=== PATIENT | male | born 1990 | race Caucasian/White ===

== ENCOUNTER 2018-02-16 09:48 | Emergency (ER) | payer BC, SELFPAY ==
[2018-02-16 10:06] VITALS: BP 105/71; PULSE 77; RESP 16; TEMP 36.6; O2SAT 100
--- NOTE | 2018-02-16 10:13 | DI.CT_ITS ---
SYMPTOM/DIAGNOSIS: RLQ PAIN CT ABDOMEN AND PELVIS: The study was carried out with oral ingestion of 50 cc Omnipaque 350. The lung bases are unremarkable. The liver and spleen are enlarged. No focal hepatic or splenic abnormality is seen. The gallbladder and pancreas are unremarkable. Multiple small right renal calculi are demonstrated. There is mild right hydronephrosis and hydroureter. A tiny calcification is noted on the right posterior bladder floor likely representing a past calculus. The bladder is otherwise unremarkable. The left kidney is normal. No adrenal abnormality is seen. There is no evidence of bowel obstruction. The appendix is normal. There is no evidence of free air or free fluid in the intraperitoneal space. No hernia is identified. Allowing for the absence of contrast material, there is nothing to suggest an aortic aneurysm No acute bony abnormality is identified. SUMMARY: Left nephrolithiasis is demonstrated. There is apparent mild and a very small calcification overlying the posterior right bladder wall likely represents a very small calculus. As noted above, there is mild right hydronephrosis and small right renal calculi are demonstrated.
--- NOTE | 2018-02-16 10:22 | W.ED.GENAD ---
Discharge Plan Disposition Patient Disposition: HOME Condition: Fair Discharge Details Chief Complaint: Abd Prob Clinical Impression: Right nephrolithiasis Primary Care Provider: Sam Walker ED Provider: Nancie Sotomayor Discharge Instructions Instructions: Kidney Stones (ED) Additional Instructions: Encourage hydration. Anti-inflammatories will work best for your pain, you may use 600 mg of ibuprofen every 6 hours. Your next ibuprofen dosing at 6 PM. He may augment this with Tylenol, use 1000 mg of Tylenol every 6 hours. Please strain your urine to that may collect stone and bring this with you to your upcoming urology appointment. Our summer child caregiver will help facilitate follow-up with urology. If you develop fever/chills, increased pain or other new/worsening symptoms please seek care urgently once again Referrals: Tung Rondon MD [ [facility] STAFF PHYSICIAN] - ([phone]) Sam Walker [Primary Care Provider] - Discharge Data Discharge Date/Time-TO BE ENTERED AT DEPARTURE: 02/16/18 12:59 Medical Decision Making Patient presents today with chief complaint of right lower quadrant pain. On exam, patient is unable to hold still. Was initially found on the ground in the waiting room curled up clutching his abdomen. Patient is endorsing nausea. States the pain is 10 out of 10 at this time in the right lower quadrant. Pain is primarily over McBurney's point. However, his appearance is also concerning for possible kidney stone. No CVA tenderness. Will obtain laboratory evaluation, treatment since discomfort, nausea and obtain imaging. I did discuss the case with Dr. Aquino who happened to be in the department. I did question if the patient may receive Toradol as he may be an acute appendicitis and he thought that this was appropriate given the patient's history. Patient will be given IV Tylenol, Toradol, Compazine and Benadryl. Laboratory evaluation significant for blood in the urine, no signs of infection the urinalysis. No leukocytosis. Laboratory evaluation of the right without significant of normality After the patient received IV Toradol, Tylenol and antiemetics he appears much improved. He is sleeping, resting comfortably. He reports that while he still has discomfort it is improved CT obtained showing right hydronephrosis and calcification that appears to be a passed stone in the bladder. Discussed findings with the radiologist. No other acute abnoramlities noted. Discussed findings with the patient. Advised taht it appears he has passed a kidney stone. Patient was asked to strain urine, will be given collection kit by nursing staff. Encuraged hydration. Advised that the bulk of his discomfort should have subsided given the location of the stone on CT. Advised that NSAIDS would be mot appriopriate for his pain. Advised he may augment this with Tylenol. Discussed new/worsening symptoms and when to seek care urgently once again. Advised f/u with urologist and have asked our summer child caregiver to help set up appointment. All of his qeustions adn onerns were addressed, he is in agreement with maryam lawrence. HPI General Mode of arrival: ambulatory. Date/Time Provider Initiated Documentation: 02/16/18 10:13. Limitations to Documentation: no limitations. Information obtained by: patient. HPI Narrative: Patient is a 27-year-old male presenting today with chief complaint of severe right lower quadrant pain. Reports that he awoke with the pain approximately 2 and half hours prior to arrival. Since the pain is waxed and waned. Has found more comfortable to be in flexed position. Denies any fevers. Endorses nausea and vomiting. Is not had any food this Wednesday. States that yesterday he was not having an abdominal pain, was endorsing gas yesterday. Denies any change in bowel habits. States he has not had a bowel movement thus far today. Has not had any surgical intervention on his abdomen historically. Denies any pain in his testicles. No change in urinary habits. Denies any blood in his urine. Denies history of kidney stones or renal issues. Reports that aside from opiate abuse historically, no other medical history. No known drug allergies Related Data Allergies Allergy/AdvReac Type Severity Reaction Status Date / Time iodine Allergy Mild Hives Unverified 02/16/18 12:06 General Stated Complaint: Abd Prob CHETAN: 3 Review of Systems Constitutional Reports as per HPI, Denies chills, Denies fatigue, Denies fever(s) and Denies headache(s) ENT Denies headache(s) Cardiovascular Denies chest pain and Denies dyspnea Respiratory Denies cough and Denies dyspnea Gastrointestinal Reports as per HPI, Reports abdominal pain, Denies melena, Denies change in stool character, Denies cramping, Denies diarrhea, Reports nausea and Reports vomiting (x1 this morning) Genitourinary Reports as per HPI, Denies hematuria, Denies genital lesions, Denies genital pain, Denies dysuria, Denies flank pain, Denies testicular pain and Reports urinary urgency Musculoskeletal Denies back pain Integumentary/Breasts Denies rash and Denies wounds Neurologic Denies headache(s) Endocrine Denies fatigue [facility] Social History Smoking/Tobacco Use Status: Current every day Exam Const General: cooperative, healthy appearing, uncomfortable (patient is moving frequently, appears very uncomfortable), well developed, well groomed and acute distress moderate (patient appears uncomfortable, is moving frequently) Nutritional Appearance: average body habitus and well nourished Orientation: alert and awake HENMT Head: normal to inspection Ears: hearing grossly normal bilaterally Mouth: moist mucous membranes Eyes General: appearance normal, both eyes and all related structures Resp Effort & Inspection: normal respiratory effort, able to speak in complete sentences and no respiratory distress Auscultation: clear to auscultation bilaterally Cardio Rate: regular rate Rhythm: regular rhythm Heart Sounds: S1 normal and S2 normal GI Inspection: no abdominal wall ecchymosis, no edema, non-distended, no incisions and no visible herniation Palpation: soft, no hepatosplenomegaly, no aortic enlargement, not firm, no guarding, no masses, not rigid and tender in the RLQ, at McBurney's point and suprapubicly; obturator sign negative, psoas sign negative and with no rebound tenderness Percussion: normal to percussion Auscultation: normal bowel sounds Back/Spine/Pelvis Back: no CVA tenderness Skin General skin exam: no rashes or lesions noted Neuro General: alert and awake Cognition: normal cognition Speech: speech normal Gait: normal gait Course Vital Signs Temperature 36.6 C 02/16/18 10:06 Pulse 77 02/16/18 10:06 Respiratory Rate 16 02/16/18 10:06 Blood Pressure 105/71 02/16/18 10:06 Pulse Oximetry 100 02/16/18 10:06 Temperature 36.6 C 02/16/18 10:06 Temperature Source Skin 02/16/18 10:06 Pulse 77 02/16/18 10:06 Respiratory Rate 16 02/16/18 10:06 Respiratory Effort Non-Labored 09/26/18 10:06 Blood Pressure 105/71 02/16/18 10:06 Pulse Oximetry 100 02/16/18 10:06 Oxygen Delivery Method Room Air 02/16/18 10:06 Oxygen Flow Rate 0 02/16/18 10:06 Pain Level 10 02/16/18 10:06
[2018-02-16 10:23] LABS: Bilirubin Negative (Negative); Blood Moderate (Negative); Clarity Clear; Glucose Negative (Negative); Ketones Negative (Negative); Leukocyte Esterase Negative (Negative); Nitrite Negative (Negative); pH 8.5 (5-8)
--- NOTE | 2018-02-16 10:29 | ED.GENADUL_ITS ---
Discharge Plan Disposition Patient Disposition: HOME Condition: Fair Discharge Details Chief Complaint: Abd Prob Clinical Impression: Right nephrolithiasis Primary Care Provider: Sam Walker ED Provider: Nancie Sotomayor Discharge Instructions Instructions: Kidney Stones (ED) Additional Instructions: Encourage hydration. Anti-inflammatories will work best for your pain, you may use 600 mg of ibuprofen every 6 hours. Your next ibuprofen dosing at 6 PM. He may augment this with Tylenol, use 1000 mg of Tylenol every 6 hours. Please strain your urine to that may collect stone and bring this with you to your upcoming urology appointment. Our patient care assistant will help facilitate follow- up with urology. If you develop fever/chills, increased pain or other new/ worsening symptoms please seek care urgently once again Referrals: Tung Rondon MD [ [facility] STAFF PHYSICIAN] - ([phone]) Sam Walker [Primary Care Provider] - Discharge Data Discharge Date/Time-TO BE ENTERED AT DEPARTURE: 02/16/18 12:59 Medical Decision Making Patient presents today with chief complaint of right lower quadrant pain. On exam, patient is unable to hold still. Was initially found on the ground in the waiting room curled up clutching his abdomen. Patient is endorsing nausea. States the pain is 10 out of 10 at this time in the right lower quadrant. Pain is primarily over McBurney's point. However, his appearance is also concerning for possible kidney stone. No CVA tenderness. Will obtain laboratory evaluation, treatment since discomfort, nausea and obtain imaging. I did discuss the case with Dr. Aquino who happened to be in the department. I did question if the patient may receive Toradol as he may be an acute appendicitis and he thought that this was appropriate given the patient's history. Patient will be given IV Tylenol, Toradol, Compazine and Benadryl. Laboratory evaluation significant for blood in the urine, no signs of infection the urinalysis. No leukocytosis. Laboratory evaluation of the right without significant of normality After the patient received IV Toradol, Tylenol and antiemetics he appears much improved. He is sleeping, resting comfortably. He reports that while he still has discomfort it is improved CT obtained showing right hydronephrosis and calcification that appears to be a passed stone in the bladder. Discussed findings with the radiologist. No other acute abnoramlities noted. Discussed findings with the patient. Advised taht it appears he has passed a kidney stone. Patient was asked to strain urine, will be given collection kit by nursing staff. Encuraged hydration. Advised that the bulk of his discomfort should have subsided given the location of the stone on CT. Advised that NSAIDS would be mot appriopriate for his pain. Advised he may augment this with Tylenol. Discussed new/worsening symptoms and when to seek care urgently once again. Advised f/u with urologist and have asked our patient care assistant to help set up appointment. All of his qeustions adn onerns were addressed, he is in agreement with maryam lawrence. HPI General Mode of arrival: ambulatory . Date/Time Provider Initiated Documentation: 02/16/18 10:13 . Limitations to Documentation: no limitations . Information obtained by: patient . HPI Narrative: Patient is a 27-year-old male presenting today with chief complaint of severe right lower quadrant pain. Reports that he awoke with the pain approximately 2 and half hours prior to arrival. Since the pain is waxed and waned. Has found more comfortable to be in flexed position. Denies any fevers. Endorses nausea and vomiting. Is not had any food this Wednesday. States that yesterday he was not having an abdominal pain, was endorsing gas yesterday. Denies any change in bowel habits. States he has not had a bowel movement thus far today. Has not had any surgical intervention on his abdomen historically. Denies any pain in his testicles. No change in urinary habits. Denies any blood in his urine. Denies history of kidney stones or renal issues. Reports that aside from opiate abuse historically, no other medical history. No known drug allergies Related Data Allergies Allergy/AdvReac Type Severity Reaction Status Date / Time iodine Allergy Mild Hives Unverified 02/16/18 12:06 General Stated Complaint: Abd Prob CHETAN: 3 Review of Systems Constitutional Reports as per HPI, Denies chills, Denies fatigue, Denies fever(s) and Denies headache(s) ENT Denies headache(s) Cardiovascular Denies chest pain and Denies dyspnea Respiratory Denies cough and Denies dyspnea Gastrointestinal Reports as per HPI, Reports abdominal pain, Denies melena, Denies change in stool character, Denies cramping, Denies diarrhea, Reports nausea and Reports vomiting (x1 this morning) Genitourinary Reports as per HPI, Denies hematuria, Denies genital lesions, Denies genital pain, Denies dysuria, Denies flank pain, Denies testicular pain and Reports urinary urgency Musculoskeletal Denies back pain Integumentary/Breasts Denies rash and Denies wounds Neurologic Denies headache(s) Endocrine Denies fatigue [facility] Social History Smoking/Tobacco Use Status: Current every day Exam Const General: cooperative, healthy appearing, uncomfortable (patient is moving frequently, appears very uncomfortable), well developed, well groomed and acute distress moderate (patient appears uncomfortable, is moving frequently) Nutritional Appearance: average body habitus and well nourished Orientation: alert and awake HENMT Head: normal to inspection Ears: hearing grossly normal bilaterally Mouth: moist mucous membranes Eyes General: appearance normal, both eyes and all related structures Resp Effort & Inspection: normal respiratory effort, able to speak in complete sentences and no respiratory distress Auscultation: clear to auscultation bilaterally Cardio Rate: regular rate Rhythm: regular rhythm Heart Sounds: S1 normal and S2 normal GI Inspection: no abdominal wall ecchymosis, no edema, non-distended, no incisions and no visible herniation Palpation: soft, no hepatosplenomegaly, no aortic enlargement, not firm, no guarding, no masses, not rigid and tender in the RLQ, at McBurney's point and suprapubicly; obturator sign negative, psoas sign negative and with no rebound tenderness Percussion: normal to percussion Auscultation: normal bowel sounds Back/Spine/Pelvis Back: no CVA tenderness Skin General skin exam: no rashes or lesions noted Neuro General: alert and awake Cognition: normal cognition Speech: speech normal Gait: normal gait Course Vital Signs Temperature 36.6 C 02/16/18 10:06 Pulse 77 02/16/18 10:06 Respiratory Rate 16 02/16/18 10:06 Blood Pressure 105/71 02/16/18 10:06 Pulse Oximetry 100 02/16/18 10:06 Temperature 36.6 C 02/16/18 10:06 Temperature Source Skin 02/16/18 10:06 Pulse 77 02/16/18 10:06 Respiratory Rate 16 02/16/18 10:06 Respiratory Effort Non-Labored 09/26/18 10:06 Blood Pressure 105/71 02/16/18 10:06 Pulse Oximetry 100 02/16/18 10:06 Oxygen Delivery Method Room Air 02/16/18 10:06 Oxygen Flow Rate 0 02/16/18 10:06 Pain Level 10 02/16/18 10:06
[2018-02-16] MEDS: Ketorolac 30 MG/ML VIAL IVP (10:45)
[2018-02-16] MEDS: Normal Saline 1,000 ML 1000 ML IV (10:45)
[2018-02-16 10:50] LABS: Bacteria Moderate HPF (Negative); C & S Indicated? Yes; Casts Negative LPF (Negative); Crystals Negative HPF (Negative); Epithelial Cells Negative HPF (Negative); Mucus Moderate (Negative); RBC >50 (0-2); WBC 0-2 HPF (0-5)
[2018-02-16 10:50] LABS: *AMPHETAMINES SCREEN URINE Negative (Negative); *BARBITURATES SCREEN URINE Negative (Negative); *BENZODIAZEPINES SCREEN URINE Negative (Negative); Cannabinoids THC POSITIVE (Negative); Cocaine Screen,Urine Negative (Negative); METHADONE URINE SCREEN Negative (Negative); OPIATES URINE SCREEN Negative (Negative)
[2018-02-16] MEDS: Prochlorperazine 10 MG/2 ML VIAL IVP (10:50)
[2018-02-16 10:54] LABS: Tricyclic Antidepressants Negative (Negative)
[2018-02-16] MEDS: ACETAMINOPHEN 1,000 MG/100 ML BTL 400 MG IVPB (11:00)
[2018-02-16 11:10] LABS: Abs Immature Grans 0.02 k/cumm (0.0-0.09); Absolute Basophil Count 0.03 k/cumm (0.0-0.2); Absolute Lymphocyte Count 1.07 k/cumm (1.2-3.4); Absolute Monocyte Count 0.41 k/cumm (0.11-0.7); Absolute Neutrophil Count 4.33 k/cumm (1.2-6.7); Basophils % 0.5; Eosinophils % 3.3; HCT 42.8 % (40.0-50.0); HGB 14.2 g/dL (13.5-17.5); Immature Grans % 0.3; Lymphocytes % 17.7; Mean Corp. HGB Concentration 33.2 g/dL (32.0-36.0); Mean Corpuscular Hemoglobin 29.5 pg (27.0-33.0); Mean Corpuscular Volume 88.8 fL (80-95); Mean Platelet Volume 8.6 fL (8.0-11.0); Monocytes % 6.8; Neutrophils % 71.4; Platelet Count 312 x1000/uL (130-400); RBC 4.82 m/cumm (4.50-6.00); RBC Distribution Width 14.2 % (11.8-14.1); White Blood Cell Count 6.06 k/cumm (4.4-10.8)
[2018-02-16] MEDS: diphenhydrAMINE 50 MG/ML VIAL 25 MG IVP (11:20)
[2018-02-16 11:31] LABS: ALT 16 U/L (12-78); AST 8 U/L (15-37); Albumin 3.4 g/dL (3.4-5.0); Alkaline Phosphatase 94 U/L (46-116); Anion Gap 11.2 mmol/L (3-11); BUN 10 mg/dL (7-18); Bilirubin, Total 0.2 mg/dL (0.2-1.0); CO2 23.8 mmol/L (21.0-32.0); CREATININE 0.92 mg/dL (0.70-1.30); Calcium 9.5 mg/dL (8.5-10.1); Chloride 106 mmol/L (98-107); Glucose 129 mg/dL (70-100); Lipase 70 U/L (73-393); Potassium 4.1 mmol/L (3.5-5.1); Sodium 141 mmol/L (136-145)
[2018-02-16 11:32] LABS: Troponin I < 0.02 ng/mL (0.00-0.06)
--- NOTE | 2018-02-16 11:38 | W.ED.GENAD ---
Discharge Plan Discharge Details Chief Complaint: Abd Prob Primary Care Provider: Sam Walker ED Provider: Nancie Sotomayor Medical Decision Making ECG Data Attestation: I personally reviewed and interpreted this ECG (s) as follows: Interpretation: Normal sinus rhythm, rate 77, QRS is narrow, there is no ST segment elevation present HPI General Mode of arrival: ambulatory. Date/Time Provider Initiated Documentation: 02/16/18 10:13. Limitations to Documentation: no limitations. Information obtained by: patient. Stated Complaint: Abd Prob CHETAN: 3 PFSH Social History Smoking/Tobacco Use Status: Current every day Course Vital Signs Temperature 36.6 C 02/16/18 10:06 Pulse 77 02/16/18 10:06 Respiratory Rate 16 02/16/18 10:06 Blood Pressure 105/71 02/16/18 10:06 Pulse Oximetry 100 02/16/18 10:06 Temperature 36.6 C 02/16/18 10:06 Temperature Source Skin 02/16/18 10:06 Pulse 77 02/16/18 10:06 Respiratory Rate 16 02/16/18 10:06 Respiratory Effort Non-Labored 02/16/18 10:06 Blood Pressure 105/71 02/16/18 10:06 Pulse Oximetry 100 02/16/18 10:06 Oxygen Delivery Method Room Air 02/16/18 10:06 Oxygen Flow Rate 0 02/16/18 10:06 Pain Level 10 02/16/18 10:45 Lab/Test Results Lab/Test Results: 02/16/18 10:14 Urine - Reflex from Ua Urine Culture - Pending Laboratory Tests Range/Units 02/16/18 02/16/18 02/16/18 10:14 10:15 10:56 WBC (4.4-10.8) k/cumm RBC (4.50-6.00) m/cumm Hgb (13.5-17.5) g/dL Hct (40.0-50.0) % MCV (80-95) fL MCH (27.0-33.0) pg MCHC (32.0-36.0) g/dL RDW (11.8-14.1) % Plt Count (130-400) x1000/uL MPV (8.0-11.0) fL Immature Gran % Neutrophils % Lymphocytes % Monocytes % Eosinophils % Basophils % Absolute Neutrophils (1.2-6.7) k/cumm Absolute Lymphocytes (1.2-3.4) k/cumm Absolute Monocytes (0.11-0.7) k/cumm Absolute Eosinophils (0.0-0.7) k/cumm Absolute Basophils (0.0-0.2) k/cumm Sodium (136-145) mmol/L 141 Potassium (3.5-5.1) mmol/L 4.1 Chloride (98-107) mmol/L 106 Carbon Dioxide (21.0-32.0) mmol/L 23.8 Anion Gap (3-11) mmol/L 11.2 H BUN (7-18) mg/dL 10 Creatinine (0.70-1.30) mg/dL 0.92 Estimated GFR/1.73 m2 (mL/min/1.73m2) >= 60.00 Glucose (70-100) mg/dL 129 H Calcium (8.5-10.1) mg/dL 9.5 Magnesium (1.8-2.4) mg/dL 2.0 Total Bilirubin (0.2-1.0) mg/dL 0.2 AST (15-37) U/L 8 L ALT (12-78) U/L 16 Alkaline Phosphatase (46-116) U/L 94 Troponin I (0.00-0.06) ng/mL < 0.02 Total Protein (6.4-8.2) g/dL 8.0 Albumin (3.4-5.0) g/dL 3.4 Lipase (73-393) U/L 70 L Urine Color (Yellow) Yellow Urine Clarity Clear Urine pH (5-8) 8.5 H Ur Specific [place] (1.005-1.025) 1.020 Urine Protein (Negative) mg/dL Negative Urine Ketones (Negative) mg/dL Negative Urine Blood (Negative) Moderate H Urine Nitrite (Negative) Negative Urine Bilirubin (Negative) Negative Urine Urobilinogen (Up TO 0.2) EU/dL 1.0 H Ur Leukocyte Esterase (Negative) Negative Urine RBC (0-2) >50 H Urine WBC (0-5) HPF 0-2 Ur Epithelial Cells (Negative) HPF Negative Urine Crystals (Negative) HPF Negative Urine Bacteria (Negative) HPF Moderate Urine Casts (Negative) LPF Negative Urine Mucus (Negative) Moderate Ur Culture Indicated? Yes Urine Glucose (Negative) mg/dL Negative Urine Opiates Screen (Negative) Negative Urine Methadone Screen (Negative) Negative Ur Barbiturates Screen (Negative) Negative Ur Tricyclics Screen (Negative) Negative Ur Amphetamines Screen (Negative) Negative U Benzodiazepines Scrn (Negative) Negative Urine Cocaine Screen (Negative) Negative Ur THC Screen (Negative) Positive Range/Units 02/16/18 10:56 WBC (4.4-10.8) k/cumm 6.06 RBC (4.50-6.00) m/cumm 4.82 Hgb (13.5-17.5) g/dL 14.2 Hct (40.0-50.0) % 42.8 MCV (80-95) fL 88.8 MCH (27.0-33.0) pg 29.5 MCHC (32.0-36.0) g/dL 33.2 RDW (11.8-14.1) % 14.2 H Plt Count (130-400) x1000/uL 312 MPV (8.0-11.0) fL 8.6 Immature Gran % 0.3 Neutrophils % 71.4 Lymphocytes % 17.7 Monocytes % 6.8 Eosinophils % 3.3 Basophils % 0.5 Absolute Neutrophils (1.2-6.7) k/cumm 4.33 Absolute Lymphocytes (1.2-3.4) k/cumm 1.07 L Absolute Monocytes (0.11-0.7) k/cumm 0.41 Absolute Eosinophils (0.0-0.7) k/cumm 0.20 Absolute Basophils (0.0-0.2) k/cumm 0.03 Sodium (136-145) mmol/L Potassium (3.5-5.1) mmol/L Chloride (98-107) mmol/L Carbon Dioxide (21.0-32.0) mmol/L Anion Gap (3-11) mmol/L BUN (7-18) mg/dL Creatinine (0.70-1.30) mg/dL Estimated GFR/1.73 m2 (mL/min/1.73m2) Glucose (70-100) mg/dL Calcium (8.5-10.1) mg/dL Magnesium (1.8-2.4) mg/dL Total Bilirubin (0.2-1.0) mg/dL AST (15-37) U/L ALT (12-78) U/L Alkaline Phosphatase (46-116) U/L Troponin I (0.00-0.06) ng/mL Total Protein (6.4-8.2) g/dL Albumin (3.4-5.0) g/dL Lipase (73-393) U/L Urine Color (Yellow) Urine Clarity Urine pH (5-8) Ur Specific [place] (1.005-1.025) Urine Protein (Negative) mg/dL Urine Ketones (Negative) mg/dL Urine Blood (Negative) Urine Nitrite (Negative) Urine Bilirubin (Negative) Urine Urobilinogen (Up TO 0.2) EU/dL Ur Leukocyte Esterase (Negative) Urine RBC (0-2) Urine WBC (0-5) HPF Ur Epithelial Cells (Negative) HPF Urine Crystals (Negative) HPF Urine Bacteria (Negative) HPF Urine Casts (Negative) LPF Urine Mucus (Negative) Ur Culture Indicated? Urine Glucose (Negative) mg/dL Urine Opiates Screen (Negative) Urine Methadone Screen (Negative) Ur Barbiturates Screen (Negative) Ur Tricyclics Screen (Negative) Ur Amphetamines Screen (Negative) U Benzodiazepines Scrn (Negative) Urine Cocaine Screen (Negative) Ur THC Screen (Negative)
[2018-02-16] MEDS: Normal Saline 1,000 ML 150 ML IV (12:00)
[2018-02-16] MEDS: Omnipaque 350 MG/ML 50 ML BTL PO (12:19)
[2018-02-16 13:09] VITALS: BP 110/62; PULSE 70; RESP 16; TEMP 36.6; O2SAT 100
--- NOTE | 2018-02-17 14:06 | PDOC.ERCMPRO ---
Care Management Progress Note 02/17/18-Pt seen for Kidney Stone on 02/16/18 by BEN Mari. referral request for f/u faxed to Urology.
== END 2018-02-16 12:59 | disposition home or self-care (01) ==
PROVIDERS: Emergency Provider Physician Assistant; PCP Family Medicine; Referring Provider Family Medicine
DX: N20.0 Calculus of kidney (principal)
CPT/HCPCS: 36415; 80053; 80307; 83690; 93005; 96361; 96374; 96375; 99285; 74176; 81003; 81015; 83735; 84484; 85025; 87086; 93010; J0131; J0780; J1200; J1885; Q9967

== ENCOUNTER 2023-10-28 08:58 | Emergency (ER) | payer MEDICAID, SELFPAY ==
[2023-10-28 09:08] VITALS: BP 126/94; PULSE 90; RESP 16; TEMP 36.6; O2SAT 100
[2023-10-28 09:12] VITALS: PULSE 90; RESP 16; TEMP 36.6; O2SAT 100
--- NOTE | 2023-10-28 09:13 | ED.GENADUL_ITS ---
Discharge Plan Disposition Patient Disposition: Home Condition: Stable Discharge Details Clinical Impression: Dental infection Primary Care Provider: Sam Walker ED Provider: Major Davila Home Meds and New Rx's Prescriptions: New amoxicillin-pot clavulanate 875-125 mg tablet 1 tab PO BID 10 Days Qty: 20 0RF Continued methadone [Methadose] 10 mg/mL concentrate 185 mg PO DAILY AM Patient Comments: [facility] Discharge Instructions Instructions: Amoxicillin/Clavulanate Potassium (By mouth), Toothache (ED) Additional Instructions: You were seen in the emergency department for your early dental infection, have no wearing signs on exam for large abscess or airway compromise. Please take the prescribed Augmentin sent to [facility] in [place]. Use topical Anbesol as needed for pain relief. Perform salt water gargles 3 times per day. Please use therapeutic dosing of Tylenol (acetamenophen) & Advil (ibuprofen) in an alternating fashion as follows: Take 1000mg of Tylenol every 6 hours without missing doses- that is 4 times per day. [place] in between the Tylenol dosings, take 400-600mg of Advil also on a 6 hour schedule, that is also 4 times per day. The daily maximum dosing of Tylenol is 4000mg, and the daily maximum dosing of Advil is 2400mg. This is safe to do for weeks. Please note that some common cold medications & prescription pain medications may contain acetamenophen and you need to read OTC drug labels and factor that in to maximum daily dosings. Please return for any inability to open or close your jaw, severe muffled vocal changes, excessive drooling and inability to manage her secretions, increasing neck or facial swelling or redness with worsening pain with swallowing. Referrals: [facility] [Provider Group] Sam Walker [Primary Care Provider] - [facility] General Date/Time Provider Initiated Documentation: 10/28/23 09:13 . HPI Narrative: 33 year-old male presents to ED today by POV/ambulating with a chief complaint of dental pain, recent loss of R lower molar, with pain to the area starting today. Quality described as throbbing, no radiation to fever, trismus, vocal changes, excessive drooling, facial swelling/erythema. Severity is described as mild. Palliating factors include nothing specific attempted today. Provoking factors include nothing specific. Patient not anticoagulated. Related Data Home Medications Medication Instructions Recorded Confirmed amoxicillin 875 mg-potassium 1 tab PO BID dental infection 10 10/28/23 clavulanate 125 mg tablet days #20 tabs methadone 10 mg/mL oral 185 mg PO DAILY AM 10/28/23 10/28/23 concentrate (Methadose) Previous Rx's Medication Instructions Recorded amoxicillin 875 mg-potassium 1 tab PO BID dental infection 10 10/28/23 clavulanate 125 mg tablet days #20 tabs Allergies Allergy/AdvReac Type Severity Reaction Status Date / Time doxycycline Allergy Intermediate Skin Rash Verified 10/28/23 09:03 General Stated Complaint: DentalOral CHETAN: 4 Review of Systems All systems reviewed & are unremarkable except as noted in HPI and below Exam Narrative Exam Narrative: GENERAL APPEARANCE: Well-nourished, non-toxic, awake and alert, atraumatic, no acute distress. SKIN: Warm, pink, dry, intact, without rashes/lesions/ulcerations. HEAD: Normocephalic, atraumatic, normal hair distribution for gender/age. EYES: Normal conjunctiva, no exudates on lids/lashes. ENT: Nares patent, no circumoral cyanosis, no facial swelling, mild inflammation to the right lower posterior gingiva without fluctuant abscess, no trismus, no vocal changes, no excessive, no facial erythema, uvula midline, no tongue deviation, no large tonsillar swelling or tonsillar shift NECK: Supple, trachea midline, painless cervical ROM. LUNGS/CHEST: Non-labored respirations, normal A/P diameter, symmetrical expansion, no chest wall deformity HEART (CV/PV): No peripheral edema, no JVD. ABDOMEN: Soft, non-distended, no guarding. MSK: Normal ROM, no swelling/deformity to bilateral UEs or LEs, moving all extremities without weakness, no cyanosis, spine midline without tenderness, normal curvature. NEURO: Mental Status AAOx4 - alert to person, place, time, events No facial droop, no forehead involvement. Motor: No focal weakness - strength 5/5 in bilateral UEs and LEs, proximal and distal, symmetric. Sensory: sensation intact to light touch globally. Gait normal: patient ambulated without ataxia into ED room. PSYCH: euthymic, cooperative, pleasant, appropriate speech Course Vital Signs Vital signs: Vital Signs Temperature 36.6 C 10/28/23 09:08 Pulse 90 10/28/23 09:08 Respiratory Rate 16 10/28/23 09:08 Blood Pressure 126/94 H 10/28/23 09:08 Pulse Oximetry 100 10/28/23 09:08 Temperature 36.6 C 10/28/23 09:08 Temperature Source Temporal Artery Scan 10/28/23 09:08 Pulse 90 10/28/23 09:08 Respiratory Rate 16 10/28/23 09:08 Respiratory Effort Normal, Non-Labored 10/28/23 09:09 Blood Pressure 126/94 H 10/28/23 09:08 Blood Pressure Position Sitting 10/28/23 09:08 Pulse Oximetry 100 10/28/23 09:08 Oxygen Delivery Method Room Air 10/28/23 09:08 Oxygen Flow Rate 0 10/28/23 09:08 Pain Level 2 10/28/23 09:08 Medical Decision Making This dictation utilizes [id number] dictation software and may contain unedited grammatical errors. 33 year-old male presents to ED today by POV/ambulating with a chief complaint of dental pain, recent loss of R lower molar, with pain to the area starting today. Quality described as throbbing, no radiation to fever, trismus, vocal changes, excessive drooling, facial swelling/erythema. Severity is described as mild. Palliating factors include nothing specific attempted today. Provoking factors include nothing specific. Patients' medical history: Noncontributory. Family and social history: Past IVDU use. Pertinent exam findings / vital signs include ENT: Nares patent, no circumoral cyanosis, no facial swelling, mild inflammation to the right lower posterior gingiva without fluctuant abscess, no trismus, no vocal changes, no excessive, no facial erythema, uvula midline, no tongue deviation, no large tonsillar swelling or tonsillar shift. Differential / pathologies of concern include dental infection, not gingival abscess at this time. Diagnostic studies of: -None. Interventions of: -Outpatient prescription for Augmentin. ED Course/Assessment/Plan: 33-year-old male without trismus or vocal changes or excessive drooling or facial swelling or erythema presents with 1 day onset of dental pain, likely early infection without evidence for abscess at this time, no tonsillar shift or swelling, requesting antibiotics which is reasonable at this time, counseled on therapeutic dosing of Tylenol and ibuprofen, sent Augmentin to [facility] in [place], strict return criteria for increasing facial swelling and erythema, inability to open or close the jaw, muffled vocal changes or excessive drooling. Findings not consistent with peritonsillar abscess, gingival abscess, facial cellulitis. Disposition of dental infection. Patient verbalized understanding of the plan and return to ED criteria and engaged in shared decision making. Medical Records Medical records reviewed: Yes I reviewed the patient's medical records. Quality:SDOH Health Related Social Needs: No Data to Display PFSH All Active Problems (Updated 10/28/23 @ 09:23 by BEN Altamirano) Dental infection (Acute) Social History Smoking/Tobacco Use Status: Current every day Tobacco Type: e-cigarettes Smoking risk assessment performed?: Yes Alcohol Intake: current Alcohol Intake frequency: holidays/special occasions only Drug use: Current Sobriety Substance use type: former substance user Details: methadone from [facility] Housing: apartment
[2023-10-28 09:27] VITALS: BP 126/94; PULSE 90; RESP 16; TEMP 36.6; O2SAT 100
== END 2023-10-28 09:27 | disposition home or self-care (01) ==
PROVIDERS: Emergency Provider Physician Assistant; PCP Family Medicine
DX: R68.84 Jaw pain (principal); K04.7 Periapical abscess without sinus
CPT/HCPCS: 99283

== ENCOUNTER 2024-01-17 10:38 | Emergency (ER) | payer MEDICAID, SELFPAY ==
[2024-01-17 10:44] VITALS: BP 143/83; PULSE 83; RESP 16; TEMP 36.6; O2SAT 94
[2024-01-17 11:27] VITALS: BP 141/72; PULSE 72; RESP 18; O2SAT 99
[2024-01-17 12:24] LABS: Abs Immature Grans 0.01 10^3/uL (0.0-0.06); Absolute Basophil Count 0.05 10^3/uL (0.0-0.2); Absolute Eosinophil Count 0.25 10^3/uL (0.0-0.7); Absolute Monocyte Count 0.54 10^3/uL (0.1-0.8); Absolute Neutrophil Count 2.69 10^3/uL (1.2-6.7); Basophils % 0.7 %; Eosinophils % 3.3 %; HGB 14.7 g/dL (13.5-17.5); Immature Grans % 0.1 %; Lymphocytes % 53.7 %; MCH 29.9 pg (27.0-33.0); MCHC 34.2 % (32.0-36.0); MCV 88 fL (80-95); MPV 8.3 fL (8.0-11.0); Monocytes % 7.1 %; Neutrophils % 35.1 %; Platelet Count 249 10^3/uL (130-400); RBC 4.91 10^6/uL (4.36-5.78); RDW 12.6 % (11.8-14.1); RDW-SD 40.6 fL; WBC 7.64 10^3/uL (4.4-10.8)
[2024-01-17 12:35] VITALS: BP 138/74; PULSE 78
[2024-01-17 12:43] LABS: ALT 38 U/L (16-63); AST 31 U/L (15-37); Albumin 4.2 g/dL (3.4-5.0); Alkaline Phosphatase 143 U/L (46-116); Anion Gap 7.7 mmol/L (3-11); BUN 16 mg/dL (7-18); Bilirubin, Total 0.35 mg/dL (0.2-1.0); CO2 27.3 mmol/L (21.0-32.0); CREATININE 0.9 mg/dL (0.70-1.30); Calcium 9.5 mg/dL (8.5-10.1); Chloride 103 mmol/L (98-107); Estimated GFR 115.65 (mL/min/1.73m2); Glucose 88 mg/dL (74-106); Lipase 18 U/L (16-77); Magnesium 2.2 mg/dL (1.8-2.4); Potassium 4.1 mmol/L (3.5-5.1); Sodium 138 mmol/L (136-145); Total Protein 8.7 g/dL (6.4-8.2)
--- NOTE | 2024-01-17 12:58 | ED.GENADUL_ITS ---
Discharge Plan Disposition Patient Disposition: Home Discharge Details Clinical Impression: Cannabinoid hyperemesis syndrome Primary Care Provider: Sam Walker ED Provider: Elvis Bell Home Meds and New Rx's Prescriptions: New ondansetron 4 mg tablet,disintegrating 4 mg PO Q8H PRN (Reason: nausea and vomiting) Qty: 14 0RF Continued methadone [Methadose] 10 mg/mL concentrate 185 mg PO DAILY AM Patient Comments: [facility] omeprazole magnesium [Prilosec OTC] 20 mg tablet,delayed release (DR/EC) 20 mg PO DAILY Discharge Instructions Instructions: Dealing With Nausea and Vomiting From the Drugs You Take, Nausea and Vomiting, Adult ED Additional Instructions: At this time your exam and labs are reassuring that your nausea and vomiting is not due to a emergent cause. I do not feel that CT imaging is beneficial at this time given that you have no abdominal tenderness and your symptoms have improved. If you have any new or significant worsening of symptoms feel free to return the emergency department for reassessment and consideration of further testing if needed I do feel that there is high probability of your symptoms being from the daily marijuana usage. It is recommended that you refrain from any THC products over the next 2 weeks and monitor your symptoms. You may use the provided nausea medication as directed. Referrals: Primary Care Provider [Outside] (Care management will contact you for a rrangement of primary care establishment and follow-up) HPI General Mode of arrival: ambulatory . Date/Time Provider Initiated Documentation: 01/17/24 10:54 . Limitations to Documentation: no limitations . Information obtained by: patient, family and RN notes reviewed . History of Present Illness 33 year old M presents to the emergency department with the chief complaint of Nausea vomiting, described as moderate and similar to prior episodes, Patient started experiencing this month(s) (1+) and it has been intermittent. other things that improve symptom(s), (Smoking marijuana) No exacerbating factors reported . Patient notes no other symptoms.. Related Data Home Medications ?Medication ?Instructions ?Recorded ?Confirmed methadone 10 mg/mL oral 185 mg PO DAILY AM 10/28/23 01/17/24 concentrate (Methadose) omeprazole magnesium 20 mg 20 mg PO DAILY 01/17/24 01/17/24 tablet,delayed release (Prilosec OTC) ondansetron 4 mg disintegrating 4 mg PO Q8H PRN nausea and 01/17/24 tablet vomiting #14 tabs Previous Rx's ?Medication ?Instructions ?Recorded ondansetron 4 mg disintegrating 4 mg PO Q8H PRN nausea and 01/17/24 tablet vomiting #14 tabs Allergies Allergy/AdvReac Type Severity Reaction Status Date / Time doxycycline Allergy Intermediate Skin Rash Verified 01/17/24 11:40 General Stated Complaint: Nausea/Vomit/Diar CHETAN: 4 Review of Systems Constitutional Constitutional: Denies chills, Denies fever(s) and Reports poor appetite Cardiovascular Cardiovascular: Denies chest pain and Denies dyspnea Respiratory Respiratory: Denies cough and Denies dyspnea Gastrointestinal Gastrointestinal: Reports as per HPI, Denies abdominal pain, Denies melena, Denies hematochezia, Denies change in bowel habits, Denies constipation, Denies diarrhea, Reports nausea and Reports vomiting Genitourinary Genitourinary: Denies hematuria, Denies difficulty urinating, Denies urinary hesitancy, Denies urinary incontinence and Denies urinary urgency Integumentary/Breasts Skin/Breast: Denies rash Exam Const General: cooperative Orientation: alert, awake and oriented x3 Resp Effort & Inspection: normal respiratory effort and able to speak in complete sentences Auscultation: clear to auscultation bilaterally Cardio Rate: regular rate Rhythm: regular rhythm Heart Sounds: S1 normal and S2 normal GI Palpation: soft, not firm, no guarding, no masses, no pulsatile masses, not rigid and nontender Auscultation: normal bowel sounds Back/Spine/Pelvis Back: no CVA tenderness Neuro General: patient alert, patient awake, patient oriented x3, gait normal and moves all extremities Course Vital Signs Vital signs: Vital Signs Temperature 36.6 C 01/17/24 10:44 Pulse 83 01/17/24 10:44 Respiratory Rate 16 01/17/24 10:44 Blood Pressure 143/83 H 01/17/24 10:44 Pulse Oximetry 94 01/17/24 10:44 Temperature 36.6 C 01/17/24 10:44 Pulse 78 01/17/24 12:35 Pulse Rhythm Regular 01/17/24 11:27 Pulse Strength Normal 01/17/24 11:27 Respiratory Rate 18 01/17/24 11:27 Respiratory Effort Normal 01/17/24 11:27 Respiratory Depth Normal 01/17/24 11:27 Respiratory Pattern Normal 01/17/24 11:27 Blood Pressure 138/74 01/17/24 12:35 Blood Pressure Mean 95 01/17/24 12:35 Blood Pressure Position Sitting 01/17/24 11:27 Pulse Oximetry 99 01/17/24 11:27 Pain Level 0 01/17/24 11:27 Lab/Test Results Lab/Test Results: Laboratory Tests Range/Units 01/17/24 12:17 WBC (4.4-10.8) 10^3/uL 7.64 RBC (4.36-5.78) 10^6/uL 4.91 Hgb (13.5-17.5) g/dL 14.7 Hct (40.0-50.0) % 43.0 MCV (80-95) fL 88 MCH (27.0-33.0) pg 29.9 MCHC (32.0-36.0) % 34.2 RDW (11.8-14.1) % 12.6 Plt Count (130-400) 10^3/uL 249 MPV (8.0-11.0) fL 8.3 Immature Gran % % 0.1 Neutrophils % % 35.1 Lymphocytes % % 53.7 Monocytes % % 7.1 Eosinophils % % 3.3 Basophils % % 0.7 Nucleated RBC % (0.0-0.3) % 0.0 Absolute Neutrophils (1.2-6.7) 10^3/uL 2.69 Absolute Lymphocytes (1.2-3.4) 10^3/uL 4.10 H Absolute Monocytes (0.1-0.8) 10^3/uL 0.54 Absolute Eosinophils (0.0-0.7) 10^3/uL 0.25 Absolute Basophils (0.0-0.2) 10^3/uL 0.05 Sodium (136-145) mmol/L 138 Potassium (3.5-5.1) mmol/L 4.1 Chloride (98-107) mmol/L 103 Carbon Dioxide (21.0-32.0) mmol/L 27.3 Anion Gap (3-11) mmol/L 7.7 BUN (7-18) mg/dL 16 Creatinine (0.70-1.30) mg/dL 0.9 Est GFR (CKD-EPI 2020) (mL/min/1.73m2) 115.65 Glucose (74-106) mg/dL 88 Calcium (8.5-10.1) mg/dL 9.5 Magnesium (1.8-2.4) mg/dL 2.2 Total Bilirubin (0.2-1.0) mg/dL 0.35 AST (15-37) U/L 31 ALT (16-63) U/L 38 Alkaline Phosphatase (46-116) U/L 143 H Total Protein (6.4-8.2) g/dL 8.7 H Albumin (3.4-5.0) g/dL 4.2 Lipase (16-77) U/L 18 Medical Decision Making Patient presenting to the emergency department for chief complaint of daily nausea vomiting. Patient reports that this has been going on for greater than 1 month and has noticed an increase of symptoms before then. He was seen in another emergency department and evaluated and he stated that he was given no answers except to take Prilosec. He does report that he had previously been drinking moderate to significant amount of alcohol which he stopped 3 weeks ago. He is a daily marijuana user and does take prescribed methadone. Patient denies any other workup or symptoms and states he does not have a primary care provider. Physical exam shows no findings of concern. Patient negative for House sign, epigastric tenderness, right lower quadrant tenderness, no peritoneal findings, is overall nontoxic in appearance. Given patient reporting multiple days of vomiting we will plan on checking patient's labs but will hold off on any imaging given negative abdominal examination. Reviewed patient's labs and patient CBC is overall unremarkable, CMP shows slight elevation of alk phos and total protein but otherwise negative findings including lipase. I do have a high suspicion of cannabinoid hyperemesis given that patient smokes marijuana daily. This diagnosis was thoroughly discussed with patient along with recommendation of abstinence for at least 2 weeks and to monitor symptoms. During this period patient was given prescription for Zofran to help reduce his nausea along with placed upon care management list to establish new PCP to follow-up with if his symptoms do not improve or if he needs further workup. Return and follow-up precautions were discussed with patient and mother who was present during the visit. After discussion of diagnosis and plan of care patient has no further needs, questions, or concerns and states clear understanding to return to the emergency department for any worsening symptoms. This documentation was generated using Dragon dictation system, please disregard any oddities of phrase or misspellings. Lab Data Lab results reviewed: Yes I reviewed the patient's lab results. Quality:SDOH Health Related Social Needs: No Data to Display PFSH All Active Problems (Updated 01/17/24 @ 13:00 by Elvis Bell NP) Cannabinoid hyperemesis syndrome (Acute) Social History Smoking/Tobacco Use Status: Current every day Tobacco Type: e-cigarettes Smoking risk assessment performed?: Yes Alcohol Intake: current Alcohol Intake frequency: holidays/special occasions only Drug use: Current Sobriety Substance use type: former substance user Details: methadone from [facility] Housing: apartment Do you feel safe at home: Yes Do you feel safe in your relationship?: Yes PAWSS Have you Been Recently Intoxicated or Drunk Within the Last 30 days?: No Have you Ever Experienced Previous Episodes of Alcohol Withdrawal?: No Have you ever Experienced Withdrawal Seizures?: No Have you ever Experienced Delirium Tremens(DT)s?: No Have you ever undergone Alcohol Rehabilitation Treatment (i.e, inpt ot outpatient treatment programs)?: No Have you ever Experienced Blackouts?: No Have you ever Combined Alcohol with other Downers within the last 90 days?: No Have you ever Combined Alcohol with any other Substance of Abuse during the last 90 days?: No Positive Blood Alcohol level on Presentation? [PCS.BAL]: No Evidence of Increased Autonomic Activity (i.e. HR>120, tremor, sweating, agitation, nausea)?: No Result: 0
--- NOTE | 2024-01-17 13:08 | NUR.NOTE ---
Addendum entered by Concepción Nunes 01/17/24 14:37: Referral faxed to [facility]; [employer] for telephone call. Needs PCP, establish care, nausea and vomiting. In 1 to 2 weeks. Original Note: referral given to care management to establish a PCP and for nausea vomiting in one to two weeks. Nursing Note:
[2024-01-17 13:15] VITALS: BP 118/82; PULSE 60; RESP 18; O2SAT 98
== END 2024-01-17 13:20 | disposition home or self-care (01) ==
PROVIDERS: Emergency Provider Nurse Practitioner Family; PCP Family Medicine
DX: R11.2 Nausea with vomiting, unspecified (principal); F12.90 Cannabis use, unspecified, uncomplicated; F17.290 Nicotine dependence, other tobacco product, uncomplicated
CPT/HCPCS: 36415; 80053; 83690; 99283; 83735; 85025

== ENCOUNTER 2024-03-24 06:09 | Emergency (ER) | payer MEDICAID, SELFPAY ==
[2024-03-24 06:24] VITALS: BP 107/94; PULSE 109; RESP 18; TEMP 37; O2SAT 98
[2024-03-24] MEDS: Lidocaine 5% Patch 1 PATCH TP (07:05)
[2024-03-24] MEDS: Ibuprofen 600 MG TAB PO (07:05)
--- NOTE | 2024-03-24 07:12 | ED.GENADUL_ITS ---
Discharge Plan Disposition Patient Disposition: Home Condition: Stable Discharge Details Clinical Impression: Low back pain, Fall Primary Care Provider: Sam Walker ED Provider: Mahad Browning Home Meds and New Rx's Prescriptions: New lidocaine [Lidoderm] 5 % adhesive patch,medicated 1 patch topical DAILY Qty: 15 0RF Rx Instructions: leave on most painful area for up to 12 hrs No Action methadone [Methadose] 10 mg/mL concentrate 185 mg PO DAILY AM Patient Comments: [facility] Discharge Instructions Instructions: Low Back Pain ED Additional Instructions: continue motrin 600 mg every 6 hours and tylenol 650mg every 4 hours as needed for pain apply pain patches as prescribed do gentle stretching and easy movements today. do not engage in overly strenuous activities. HPI General Date/Time Provider Initiated Documentation: 03/24/24 06:54 . Limitations to Documentation: no limitations . Information obtained by: patient . HPI Narrative: 33-year-old gentleman with past medical history of opiate use disorder on methadone presents for evaluation of lower back pain. He reports yesterday he was walking his dog when he fell because the dog pulled him and he landed on a rock. He reports pain in his lower back. Not associated with any numbness tingling or weakness or change in bowel or bladder.. He states that he took his methadone this morning and Tylenol. He did not try any other medicines. Denies any fever. Was not having any back pain until the fall. Related Data Home Medications ?Medication ?Instructions ?Recorded ?Confirmed methadone 10 mg/mL oral 185 mg PO DAILY AM 10/28/23 03/24/24 concentrate (Methadose) lidocaine 5 % topical patch 1 patch topical DAILY #15 ea 03/24/24 (Lidoderm) Previous Rx's ?Medication ?Instructions ?Recorded lidocaine 5 % topical patch 1 patch topical DAILY #15 ea 03/24/24 (Lidoderm) Allergies Allergy/AdvReac Type Severity Reaction Status Date / Time doxycycline Allergy Intermediate Skin Rash Verified 03/24/24 06:26 General Stated Complaint: Nk/Back Pain CHETAN: 4 Exam Narrative Exam Narrative: Review of Systems: All systems reviewed & are unremarkable except as noted in HPI and below Well-developed, no acute distress NCAT Unlabored respiratory effort No midline back tenderness step-off or deformity Does localize a left paraspinal area of soreness, no overlying bruising or skin change Bilateral lower extremities with normal sensation and 5 out of 5 strength Normal gait no focal neurologic deficits Course Vital Signs Vital signs: Vital Signs Temperature 37.0 C 03/24/24 06:24 Pulse 109 H 03/24/24 06:24 Respiratory Rate 18 03/24/24 06:24 Blood Pressure 107/94 H 03/24/24 06:24 Pulse Oximetry 98 03/24/24 06:24 Temperature 37.0 C 03/24/24 06:24 Temperature Source Temporal Artery Scan 03/24/24 06:24 Pulse 109 H 03/24/24 06:24 Respiratory Rate 18 03/24/24 06:24 Respiratory Effort Normal, Non-Labored 03/24/24 06:27 Blood Pressure 107/94 H 03/24/24 06:24 Blood Pressure Position Sitting 03/24/24 06:24 Pulse Oximetry 98 03/24/24 06:24 Oxygen Delivery Method Room Air 03/24/24 06:24 Oxygen Flow Rate 0 03/24/24 06:24 Pain Level 3 03/24/24 06:28 Medical Decision Making Emergent evaluation of acute traumatic back pain. Low mechanism of trauma. Differential diagnoses includes contusion, lumbago versus musculoskeletal spasm / strain versus sciatica. Less likely sciatica as straight leg raise test was negative. No back pain red flags on history or physical. Presentation not consistent with fracture (no bony tenderness to palpation), cauda equina (no bowel or urinary incontinence/retention, no saddle anesthesia, no distal weakness), osteomyelitis or epidural abscess (no IVDU recently, acute onset ,no vertebral tenderness), renal colic, pyelonephritis (afebrile, no CVAT, no urinary symptoms). Given the clinical picture, no indication for imaging at this time. \Provided with pain control, Motrin and lidocaine patch. Additional lidocaine patch but sent to the pharmacy. Patient is requesting some documentation that he does not have to help as [employer] today. Encouraged easy activity and rest. Return precautions advised. Quality:SDOH Health Related Social Needs: No Data to Display PFSH All Active Problems Fall (Acute) Low back pain (Acute) Social History Smoking/Tobacco Use Status: Current every day Tobacco Type: e-cigarettes Smoking risk assessment performed?: Yes Alcohol Intake: current Alcohol Intake frequency: holidays/special occasions only Drug use: Current Sobriety Substance use type: former substance user Details: methadone from [facility] Housing: apartment Do you feel safe at home: Yes Do you feel safe in your relationship?: Yes
== END 2024-03-24 07:19 | disposition home or self-care (01) ==
PROVIDERS: Emergency Provider Emergency Medicine; PCP Family Medicine
DX: M54.50 Low back pain, unspecified (principal); W01.0XXA Fall on same level from slipping, tripping and stumbling without subsequent striking against object, initial encounter; F11.11 Opioid abuse, in remission
CPT/HCPCS: 99283

== ENCOUNTER 2024-07-13 14:16 | Emergency (ER) | payer MEDICAID, SELFPAY ==
[2024-07-13 14:23] VITALS: BP 132/81; PULSE 128; RESP 20; TEMP 37.1; O2SAT 97
--- NOTE | 2024-07-13 15:30 | RT.EKG_ITS ---
APPROVED REPORT Exam: Resting ECG Reason for Exam: routine baseline for [facility] Patient Location: E HR:98 bpm ECG Measurements Heart Rate 98 AXIS ND 186 P 66 QRSd 100 QRS 57 QT 376 T 20 QTc 481 Conclusion Sinus rhythm...normal P axis, V-rate 60- 99 Nonspecific T abnormalities, anterior leads...T <-0.10mV, V2-V4
--- NOTE | 2024-07-13 16:10 | W.ED.GENAD ---
Discharge Plan Disposition Patient Disposition: Against Medical Advice Condition: Stable Discharge Details Clinical Impression: Abnormal EKG Primary Care Provider: Sam Walker ED Provider: Major Davila Home Meds and New Rx's Prescriptions: Continued methadone [Methadose] 10 mg/mL concentrate 185 mg PO DAILY AM Patient Comments: [facility]- states now taking 196mg lidocaine [Lidoderm] 5 % adhesive patch,medicated 1 patch topical DAILY Qty: 15 0RF Rx Instructions: leave on most painful area for up to 12 hrs Discharge Instructions Instructions: ECG and stress test Additional Instructions: You were seen in the emergency department for your fast heart rate at the [facility], they referred here for EKG, there are nonspecific findings of abnormal inverted T waves on her EKG. You wanted to leave without any workup which is AGAINST MEDICAL ADVICE, you are asymptomatic at this time, please return to the emergency department for any symptomatic tachycardia, palpitations, chest pain. I have placed you on a list for PCP follow-up. They should contact you when they can get you in. Due to your past IV drug use history you may be at risk for a condition called endocarditis, we have not investigated this at all due to your desire to leave without any workup today, you acknowledge these risks including cardiac problems including heart attack and possibly but you are asymptomatic at this time, do not hesitate to return for any emergent concerns. Discharge Data Discharge Date/Time-TO BE ENTERED AT DEPARTURE: 07/13/24 16:36 HPI General Date/Time Provider Initiated Documentation: 07/13/24 14:17. HPI Narrative: 33 year-old male presents to ED today by POV/ambulating with a chief complaint of sent from [facility] for tachycardia with onset unknown- patient states he has been running/walking a lot today, and endorses baseline anxiety. Quality described as not painful, denies palpitations, no radiation to cough, fever, chest pain, dizziness, near syncope, abdominal pain, nausea/vomiting, weakness, visual changes. Severity is described as 0/10. Palliating factors include nothing needed. Provoking factors include nothing specific. Events leading up to the incident/Associated Symptoms: Patient denies cardiac history, endorses history of IVDU. Patient not anticoagulated. Related Data Home Medications ?Medication ?Instructions ?Recorded ?Confirmed methadone 10 mg/mL oral 185 mg PO DAILY AM 10/28/23 07/13/24 concentrate (Methadose) lidocaine 5 % topical patch 1 patch topical DAILY #15 ea 03/24/24 07/13/24 (Lidoderm) Previous Rx's ?Medication ?Instructions ?Recorded lidocaine 5 % topical patch 1 patch topical DAILY #15 ea 03/24/24 (Lidoderm) Allergies Allergy/AdvReac Type Severity Reaction Status Date / Time doxycycline Allergy Intermediate Skin Rash Verified 07/13/24 14:26 General Stated Complaint: GenMedical CHETAN: 4 Review of Systems All systems reviewed & are unremarkable except as noted in HPI and below Exam Narrative Exam Narrative: GENERAL APPEARANCE: Well-nourished, non-toxic, awake and alert, atraumatic, no acute distress. SKIN: Warm, pink, dry, intact, without rashes/lesions/ulcerations. HEAD: Normocephalic, atraumatic, normal hair distribution for gender/age. EYES: Normal conjunctiva, no exudates on lids/lashes. ENT: Nares patent, no circumoral cyanosis, no facial swelling NECK: Supple, trachea midline, painless cervical ROM. LUNGS/CHEST: Lungs CTA bilaterally, non-labored respirations, normal A/P diameter, symmetrical expansion, no chest wall deformity HEART (CV/PV): Regular rate and rhythm without murmur, no peripheral edema, no JVD. ABDOMEN: Soft, non-distended, no guarding. MSK: Normal ROM, no swelling/deformity to bilateral UEs or LEs, moving all extremities without weakness, no cyanosis, spine midline without tenderness, normal curvature. NEURO: Mental Status AAOx4 - alert to person, place, time, events No facial droop, no forehead involvement. Motor: No focal weakness - strength 5/5 in bilateral UEs and LEs, proximal and distal, symmetric. Sensory: sensation intact to light touch globally. Gait normal: patient ambulated without ataxia into ED room. PSYCH: euthymic, cooperative, pleasant, appropriate speech Course Vital Signs Vital signs: Vital Signs Temperature 37.1 C 07/13/24 14:23 Pulse 128 H 07/13/24 14:23 Respiratory Rate 20 07/13/24 14:23 Blood Pressure 132/81 07/13/24 14:23 Pulse Oximetry 97 07/13/24 14:23 Temperature 37.1 C 07/13/24 14:23 Temperature Source Oral 07/13/24 14:23 Pulse 128 H 07/13/24 14:23 Respiratory Rate 20 07/13/24 14:23 Blood Pressure 132/81 07/13/24 14:23 Blood Pressure Position Supine 07/13/24 14:23 Pulse Oximetry 97 07/13/24 14:23 Oxygen Delivery Method Room Air 07/13/24 14:23 Oxygen Flow Rate 0 07/13/24 14:23 Pain Level 0 07/13/24 14:23 Medical Decision Making This dictation utilizes [id number] dictation software and may contain unedited grammatical errors. 33 year-old male presents to ED today by POV/ambulating with a chief complaint of sent from [facility] for tachycardia with onset unknown- patient states he has been running/walking a lot today, and endorses baseline anxiety. Quality described as not painful, denies palpitations, no radiation to cough, fever, chest pain, dizziness, near syncope, abdominal pain, nausea/vomiting, weakness, visual changes. Severity is described as 0/10. Palliating factors include nothing needed. Provoking factors include nothing specific. Events leading up to the incident/Associated Symptoms: Patient denies cardiac history, endorses history of IVDU. Patients' medical history: Negative, patient does state that he did get an EKG at some point when he was in intermediate and he did have some sort of abnormality noted. Family and social history: Former IVDU, denies EtOH. Pertinent exam findings / vital signs include mild tachycardia, regular rate and rhythm without murmur, afebrile, no respiratory distress, benign abdomen. Differential / pathologies of concern include tachycardia, arrhythmia, ischemic demand, ACS, Wellen syndrome, endocarditis, PE. Diagnostic studies of: -EKG-patient then stated he wanted to leave. -EKG shows diffuse T wave inversions and some ST depression but no reciprocal changes Interventions of: -None, patient left AMA. ED Course/Assessment/Plan: 33-year-old male was sent by [facility] for abnormal tachycardia there, his EKG shows inverted T waves which he believes were present long ago when he had an EKG and present, I did state that he should have a workup for this condition, he wanted to leave AGAINST MEDICAL ADVICE, I told him to return for any symptomatic chest pain or palpitations, I told him about risks of endocarditis from his past IV drug use as well as pulmonary embolism and Wellen syndrome possibly resulting in cardiac arrest and , I did set him up on the PCP follow-up list to establish care. Findings not consistent with definitive rule out of ACS, PE, Wellen syndrome. Disposition of abnormal EKG. Patient verbalized understanding of the plan and return to ED criteria and engaged in shared decision making. Medical Records Medical records reviewed: Yes I reviewed the patient's medical records. Quality:SDOH Health Related Social Needs: No Data to Display PFSH All Active Problems (Updated 07/13/24 @ 16:17 by BEN Altamirano) Abnormal EKG (Acute) Social History Smoking/Tobacco Use Status: Current every day Tobacco Type: e-cigarettes Smoking risk assessment performed?: Yes Alcohol Intake: current Alcohol Intake frequency: holidays/special occasions only Drug use: Current Sobriety Substance use type: former substance user Details: methadone from [facility] Housing: apartment Do you feel safe at home: Yes Do you feel safe in your relationship?: Yes
[2024-07-13 16:25] VITALS: BP 132/81; PULSE 128; RESP 15; RESP 20; TEMP 37.1; O2SAT 97
== END 2024-07-13 16:36 | disposition left against medical advice (07) ==
PROVIDERS: Emergency Provider Physician Assistant; PCP Family Medicine
DX: R94.31 Abnormal electrocardiogram [ECG] [EKG] (principal); Z53.21 Procedure and treatment not carried out due to patient leaving prior to being seen by health care provider
CPT/HCPCS: 93005; 99283; 93010

== ENCOUNTER 2024-12-18 14:54 | Emergency (ER) | payer MEDICAID, SELFPAY ==
[2024-12-18 14:55] VITALS: BP 121/84; PULSE 94; RESP 16; TEMP 36.7; O2SAT 96
--- NOTE | 2024-12-18 15:54 | W.ED.GENAD ---
Discharge Plan Disposition Patient Disposition: Home Condition: Stable Discharge Details Clinical Impression: Abscess of right forearm, Pain, dental Primary Care Provider: Sam Walker ED Provider: Luis Antonio Lewis Home Meds and New Rx's Prescriptions: New clindamycin HCl 150 mg capsule 450 mg PO TID 7 Days Qty: 63 0RF Continued methylphenidate HCl [Concerta] 18 mg tablet extended release 24hr 18 mg PO DAILY Patient Comments: TAKE ONE TABLET BY MOUTH EVERY DAY gabapentin 100 mg capsule 100 mg PO TID Patient Comments: TAKE ONE CAPSULE BY MOUTH THREE TIMES A DAY FOR NEUROPATHY PAIN methadone [Methadose] 10 mg/mL concentrate 196 mg PO DAILY AM Patient Comments: [facility]- states now taking 196mg Discharge Instructions Additional Instructions: Take the antibiotic as prescribed. Turn to the ER for the times a day to keep it open and prevent reaccumulation of fluid. Follow-up with a dentist of your primary care provider. If you feel significantly more ill or have any symptoms such as high fevers return to the emergency department for reevaluation. HPI General Mode of arrival: ambulatory. Date/Time Provider Initiated Documentation: 12/18/24 15:02. Limitations to Documentation: no limitations. Information obtained by: patient. History of Present Illness 34 year old M presents to the emergency department with the chief complaint of dental pain and right forearm abscess, described as mild, Quality is described as aching, and is localized to the mouth, right and upper extremity. Patient reports no radiation. Patient started experiencing this day(s) (3) and it has been constant. No relieving factors improve symptom(s), No exacerbating factors reported . Patient notes no other symptoms.. Patient did receive the following treatments prior to arrival, none Related Data Home Medications ?Medication ?Instructions ?Recorded ?Confirmed methadone 10 mg/mL oral 196 mg PO DAILY AM 10/28/23 12/18/24 concentrate (Methadose) clindamycin HCl 150 mg capsule 450 mg (3 x 150 mg) PO TID 7 days 12/18/24 #63 caps gabapentin 100 mg capsule 100 mg PO TID 12/18/24 12/18/24 methylphenidate HCl 18 mg 18 mg PO DAILY 12/18/24 12/18/24 tablet,extended release 24 hr (Concerta) Previous Rx's ?Medication ?Instructions ?Recorded clindamycin HCl 150 mg capsule 450 mg (3 x 150 mg) PO TID 7 days 12/18/24 #63 caps Allergies Allergy/AdvReac Type Severity Reaction Status Date / Time doxycycline Allergy Intermediate Skin Rash Verified 07/13/24 14:26 General Stated Complaint: Cellulitis CHETAN: 3 Review of Systems All systems reviewed & are unremarkable except as noted in HPI and below Constitutional Constitutional: Denies chills, Denies fever(s) and Denies weakness Cardiovascular Cardiovascular: Denies chest pain and Denies dyspnea Respiratory Respiratory: Denies cough and Denies dyspnea Gastrointestinal Gastrointestinal: Denies vomiting Neurologic Neurologic: Denies weakness Exam Const General: no acute distress Orientation: alert HENMT Head: normal to inspection Ears: external ears normal General nose exam: external nose normal Mouth: moist mucous membranes Eyes General: appearance normal, both eyes and all related structures Neck Neck: normal visual inspection Resp Effort & Inspection: normal respiratory effort and able to speak in complete sentences Cardio Rate: regular rate Skin General skin exam: erythema Neuro General: patient alert and patient oriented x3 Extrem General: full ROM and capillary refill normal Psych Mental Status: mental status grossly normal Course Vital Signs Vital signs: Vital Signs Temperature 36.7 C 12/18/24 14:55 Pulse 94 H 12/18/24 14:55 Respiratory Rate 16 12/18/24 14:55 Blood Pressure 121/84 12/18/24 14:55 Pulse Oximetry 96 12/18/24 14:55 Temperature 36.7 C 12/18/24 14:55 Temperature Source Oral 12/18/24 14:55 Pulse 94 H 12/18/24 14:55 Respiratory Rate 16 12/18/24 14:55 Blood Pressure 121/84 12/18/24 14:55 Pulse Oximetry 96 12/18/24 14:55 Oxygen Delivery Method Room Air 12/18/24 14:55 Oxygen Flow Rate 0 12/18/24 14:55 Pain Level 4 12/18/24 14:55 Procedure Abscess Drainage Patient Consented: Verbally Location of Exam: Upper extremity/right Ultrasound: Not used Complications: None Procedure Description Note: I cleaned the area with alcohol swabs and then using an 11 blade made a 1 cm incision with copious return of purulent material. Used an Vonnie clamp to open up the abscess. Tolerated well without complications. Medical Decision Making 34-year-old male comes in with 2 complaints. [id number] few days. He has a left lower molar pain that he feels is similar to prior dental infections. He denies any difficulty swallowing or breathing. He also notes a abscess on his right posterior forearm. He denies any fevers or systemic symptoms. He has a 2 x 3 cm area of fluctuance with mild erythema in the left posterior mid forearm. There is no crepitus or severe tenderness. He has no swelling of the arm. It is consistent with an abscess, he has given verbal consent to have a drain which was done without any complications. He has no submandibular swelling, normal posterior pharynx, he has numerous eroded teeth in his left posterior molar lower jaw is tender to palpation without visible drainable abscess. I am going to start him on clindamycin for both the arm abscess and his dental pain which is likely from an infection, he has no findings on exam to suggest Jessie's. He will follow-up with a dentist and his PCP, return precautions given Differential Diagnosis Differential Diagnosis: Abscess, dental abscess, pulpitis PFS All Active Problems (Updated 12/18/24 @ 15:56 by Luis Antonio Lewis MD) Pain, dental (Acute) Abscess of right forearm (Acute) Social History Smoking/Tobacco Use Status: Current every day Tobacco Type: e-cigarettes Smoking risk assessment performed?: Yes Alcohol Intake: current Alcohol Intake frequency: holidays/special occasions only Drug use: Current Sobriety Substance use type: former substance user Details: methadone from [facility] Housing: apartment Do you feel safe at home: Yes Do you feel safe in your relationship?: Yes
[2024-12-18] MEDS: Clindamycin 150 MG CAP 450 MG PO (16:02)
[2024-12-18 16:03] VITALS: BP 123/85; PULSE 93; RESP 18; O2SAT 98
[2024-12-18 16:06] VITALS: BP 123/85; PULSE 93; RESP 18; TEMP 36.7; O2SAT 98
== END 2024-12-18 16:07 | disposition home or self-care (01) ==
LOC: ER 16:08
PROVIDERS: Emergency Provider Emergency Medicine; PCP Family Medicine
DX: L02.413 Cutaneous abscess of right upper limb (principal); K08.89 Other specified disorders of teeth and supporting structures
CPT/HCPCS: 10060